=== PATIENT | male | born 1965 | race American Indian/Alaskan Native ===

== ENCOUNTER 2016-09-22 11:51 | Emergency (ER) | payer MEDICARE | END 2016-09-22 14:25 | disposition home or self-care (01) | LOC: C.ER 11:51 | DX: R10.31 Right lower quadrant pain (principal) ==

== ENCOUNTER 2018-02-09 12:17 | Emergency (ER) | payer MEDICARE ==
[2018-02-09 12:17] VITALS: BMI 23.7
[2018-02-09 12:38] VITALS: RESP 18
--- NOTE | 2018-02-09 14:01 | C.PDOC ---
History Of Present Illness 52 y/o male pt hx of kidney stone presents to the ER c/o crampy right sided abdominal pain. Pt had similar complaint in september of this year. Pt has a Filipino diet based on rice. Patient denies chest pain, shortness of breath, headache, fever, chills, cough, nausea, vomiting, diarrhea, changes in bowel habits, dysuria, hematuria, frequency, flank pain, testicular pain or penile discharge Time Seen by Provider: 02/09/18 13:37 Chief Complaint (Nursing): Abdominal Pain History Per: Patient History/Exam Limitations: no limitations Onset/Duration Of Symptoms: Days Current Symptoms Are (Timing): Still Present Past Medical History Reviewed: Historical Data, Nursing Documentation, Vital Signs Vital Signs: Last Vital Signs Temp 97.5 F L 02/09/18 12:33 Pulse 104 H 02/09/18 12:33 Resp 18 02/09/18 12:33 BP 158/93 H 02/09/18 12:33 Pulse Ox 100 02/09/18 12:33 Family History: States: No Known Family Hx - Social History Hx Tobacco Use: No Hx Alcohol Use: No Hx Substance Use: No Review Of Systems Except As Marked, All Systems Reviewed And Found Negative. Constitutional: Positive for: Other (+ chronic constipation and hard stools, diet based on rice and bread Filipino). Negative for: Fever, Chills Cardiovascular: Negative for: Chest Pain Respiratory: Negative for: Cough, Shortness of Breath Gastrointestinal: Positive for: Abdominal Pain (right-side), Constipation (chronic ). Negative for: Nausea, Vomiting, Diarrhea, Other (changes in bowel ) Genitourinary: Negative for: Dysuria, Frequency, Hematuria, Scrotal Pain, Penile Pain Neurological: Negative for: Headache Physical Exam - Physical Exam Appears: Non-toxic, No Acute Distress Skin: Warm, Dry Head: Normacephalic Eye(s): bilateral: Normal Inspection, EOMI Nose: Normal Oral Mucosa: Moist Chest: Symmetrical Cardiovascular: Rhythm Regular Respiratory: Normal Breath Sounds Gastrointestinal/Abdominal: Soft, Tenderness, No Mass, No Distention, No Guarding, No Rebound, Other (dull to percussion on right side; (-) mcburney's, (-) anguiano's) Back: No CVA Tenderness Extremity: Normal ROM (x4) Neurological/Psych: Oriented x3, Normal Speech, Normal Cognition ED Course And Treatment - Laboratory Results Result Diagrams: 02/09/18 15:07 02/09/18 15:07 Lab Interpretation: Normal (UA neg.) O2 Sat by Pulse Oximetry: 100 (RA) Pulse Ox Interpretation: Normal - Radiology CXR: Interpreted by Me CXR Interpretation: Yes: No Acute Disease - Other Rad Obstructive series X-Ray: Read By Radiologist Interpretation: IMPRESSION: Mild retained stool. +FOS Medical Decision Making Medical Decision Making: Impression: abdominal pain with chronic constipation Plans: -- Chem labs -- blood work -- Obstructive series -- UA chronic constipation LOW susp of renal colic diet and exercise educated acute on chronic renal insufficiency creat 2.5, prior creat 1.7 ? pre-renal vs DM, vs chronic HTN pt wants AMA d/c and will f/u as opt with PMD/Nephrology PO fluids encouraged for now. Disposition Doctor Will See Patient In The: Office Counseled Patient/Family Regarding: Studies Performed, Diagnosis - Disposition [facility]errals: [facility] [[facility]] [facility] [Outside] [facility] [Outside] [facility] [Outside] Disposition: HOME/ ROUTINE Disposition Time: 14:58 Condition: GOOD Additional Instructions: drink a laxative now (an entire bottle of Mag Citrate) and re-evaluate your abdominal discomfort after using the bathroom 2-3 times diet and exercise changes 7 fresh fruits and vegetables daily LESS rice/bread power walk 45 min/day x 5 days/week Drink more water Occasional laxative of your choice should constipation/abdominal colic return. outpatient [facility] follow-up as needed. Instructions: Constipation in Adults Forms: [facility] ([place]) - Clinical Impression Clinical Impression: Abdominal colic, Constipation, Renal insufficiency syndrome - Scribe Statement The provider has reviewed the documentation as recorded by the Scribe Martha Oneill Provider Attestation: All medical record entries made by the Scribe were at my direction and personally dictated by me. I have reviewed the chart and agree that the record accurately reflects my personal performance of the history, physical exam, medical decision making, and the department course for this patient. I have also personally directed, reviewed, and agree with the discharge instructions and disposition.
--- NOTE | 2018-02-09 14:39 | RAD ---
Date of service: 02/09/2018 PROCEDURE: Radiographs of the chest and abdomen (obstructive series) HISTORY: abd pain COMPARISON: No prior. TECHNIQUE: AP radiograph of the chest, with upright and supine radiographs of the abdomen. FINDINGS: CHEST: Lungs: Clear. Cardiovascular: Normal size heart. No pulmonary vascular congestion. No aortic atherosclerotic calcification present Pleura: No pleural fluid. No pneumothorax. Other findings: None. ABDOMEN AND PELVIS: Bowel: Mild retained feces. No evidence of obstruction. No masses or abnormal calcifications. Free air: None. Bones: Unremarkable. Other findings: None. IMPRESSION: Mild retained stool. Otherwise unremarkable examination
[2018-02-09 15:17] LABS: BASO % 1.1 % (0.0-2.0); EOS # 0.1 K/uL (0.0-0.7); EOS % 1.9 % (0.0-4.0); HEMOGLOBIN 11.9 g/dL (12.0-18.0); LYMPH # 1.4 K/uL (1.0-4.3); LYMPH % 37.6 % (20.0-40.0); MEAN CORPUSCULAR HEMOGLOBIN 26.5 pg (27.0-31.0); MEAN CORPUSCULAR HGB CONC 33.8 g/dL (33.0-37.0); MEAN PLATELET VOLUME 8.5 fL (7.2-11.7); MONO # 0.4 K/uL (0.0-0.8); NEUT # 1.9 K/uL (1.8-7.0); NEUT % 49.4 % (50.0-75.0); RBC 4.48 Mil/uL (4.40-5.90); RED CELL DISTRIBUTION WIDTH 16.9 % (11.5-14.5); WHITE BLOOD COUNT 3.8 K/uL (4.8-10.8)
[2018-02-09 15:20] LABS: MEAN CELL VOLUME 78.4 fL (80.0-94.0)
[2018-02-09 15:22] LABS: SQUAMOUS EPITHIAL < 1 /hpf (0-5); URINE BACTERIA RARE (<OCC); URINE BILIRUBIN NEGATIVE (NEGATIVE); URINE BLOOD 1+ (NEGATIVE); URINE CLARITY Hazy (Clear); URINE COLOR Yellow (YELLOW); URINE GLUCOSE (UA) NORMAL (Normal); URINE LEUKOCYTE ESTERASE NEG Leu/uL (Negative); URINE PROTEIN 3+ mg/dL (NEGATIVE); URINE UROBILINOGEN NORMAL mg/dL (0.2-1.0)
[2018-02-09 15:30] LABS: ALB/GLOB RATIO 0.8 (1.0-2.1); ALBUMIN 3.8 g/dL (3.5-5.0); CALCIUM 9.4 mg/dl (8.6-10.4)
[2018-02-09] MEDS ORDERED: Sodium Chloride 0.9% 1,000 ML IV ONE ×2 (15:49→15:50)
[2018-02-09 16:10] VITALS: BP 154/85; PULSE 108; TEMP 98.5; O2SAT 99
== END 2018-02-09 16:14 | disposition home or self-care (01) ==
LOC: C.ER 12:17
DX: K59.00 Constipation, unspecified (principal); N28.9 Disorder of kidney and ureter, unspecified; R10.84 Generalized abdominal pain